=== PATIENT | male | born 1980 | race Two or more races ===

== ENCOUNTER 2024-09-03 05:35 | Day surgery (SDC) | payer OTHER ==
[2024-08-30 15:31] VITALS: BMI 25.0
[2024-09-03] MEDS ORDERED: ONDANSETRON 4 MG/2 ML VIAL IVPUSH PRN (08:16)
[2024-09-03] MEDS ORDERED: MIDAZOLAM HCL 2 MG/2 ML SINGLE DOSE VIAL ONE (08:29)
[2024-09-03] MEDS ORDERED: PROPOFOL 20 ML ONE ×2 (08:29→08:55)
[2024-09-03] MEDS ORDERED: LIDOCAINE HCL 1%, 10 MG/ML (20ML VIAL) ONE (08:35)
[2024-09-03] MEDS ORDERED: LIDOCAINE 1%/EPI 1:100000 (20 ML MULTI DOSE VIAL) ONE (08:36)
[2024-09-03] MEDS: ceFAZolin 2 GRAM PREMIX BAG IVPB ONE (09:03)
[2024-09-03] MEDS: LACTATED RINGERS SOLUTION 1,000 ML IV SCH (10:00)
[2024-09-03] MEDS: ACETAMINOPHEN INJECTION 100 ML ONE (10:53)
[2024-09-03] MEDS: ACETAMINOPHEN 1000 MG/100 ML BAG IVPB ONE (10:53)
[2024-09-03 11:17] VITALS: RESP 18
[2024-09-03 13:41] VITALS: BP 123/76; PULSE 61; TEMP 97.7
== END 2024-09-03 13:35 | disposition home or self-care (01) ==
LOC: JASU-SURG 05:35
PROVIDERS: ATTEND Urology
PROC: 0VBG0ZZ Excision of Left Spermatic Cord, Open Approach (ICD-10-PCS; principal; 2024-09-03 08:45)
DX: I86.1 Scrotal varices (principal)
CPT/HCPCS: 88304-TC; 94760

== ENCOUNTER 2024-09-03 21:26 | Emergency (ER) | payer OTHER ==
[2024-09-03 21:32] VITALS: BP 120/66; PULSE 71; RESP 18; TEMP 98.3; BMI 25.0
== END 2024-09-03 22:28 | disposition home or self-care (01) ==
LOC: JER 21:26
DX: N99.89 Other postprocedural complications and disorders of genitourinary system (principal); N50.89 Other specified disorders of the male genital organs
CPT/HCPCS: 99283-25